=== PATIENT | female | born 1960 | race Caucasian/White ===

== ENCOUNTER → 2022-02-14 16:11 | Outpatient (CLI) | payer OTHER, SELFPAY ==
--- NOTE | ~2022-02-14 | XR_ITS ---
XR chest 2V DATE: 02/14/2022 16:34 INDICATION: Cough TECHNIQUE: 2 views COMPARISON: March 31, 2014 2 view chest FINDINGS: Normal heart size. No hilar or mediastinal enlargement. No pulmonary infiltrate or consolid ation, pleural effusion or pulmonary vascular congestion or pneumothorax. IMPRESSION: No active cardiopulmonary disease Reviewed, dictated and finalized at location [facility]
== END ==
PROVIDERS: PCP Internal Medicine; Visit Provider Internal Medicine
DX: R05.9 Cough, unspecified (principal)
CPT/HCPCS: 71046

== ENCOUNTER 2022-12-13 05:16 | Day surgery (SDC) | payer OTHER, SELFPAY ==
[2022-12-02 14:04] VITALS: BMI 27.6
--- NOTE | 2022-12-12 13:31 | WPDANESEPPF ---
Anes - Initial Pre Proc Eval Procedure: Operation Date: 12/13/22 08:00 Proposed Procedures p Screening Colonoscopy - Jay Arango MD Date/Time: 12/12/22 13:31 Surgeon: Jay Arango MD Pre Op Diagnosis: neoplasm screening Patient Data Age: 62 Gender: F Height: 1.68 m Weight: 77.5 kg Allergies Allergy/AdvReac Type Severity Reaction Status Date / Time No Known Allergies Allergy Mild Verified 12/13/22 06:49 Home Medications Medication Instructions Recorded Confirmed Type cholecalciferol (vitamin D3) 50 2,500 mcg PO DAILY 12/02/22 12/02/22 History mcg (2,000 unit) tablet (Vitamin D3) cyanocobalamin (vitamin B-12) 1,000 mcg PO DAILY 12/02/22 12/02/22 History 1,000 mcg tablet (Vitamin B-12) valacyclovir 500 mg tablet 500 mg PO DAILY PRN fever blister 12/02/22 12/02/22 History (Valtrex) Patient hx anesthesia problems: none Family hx anesthesia problems: none Results Review: All pre-operative results and documents have been reviewed as part of the pre-operative evaluation. [facility] Past Medical History Medical History (Updated 12/12/22 @ 13:31 by Vahe Sanchez DO) Asthma Social History Social History Smoking status: Former smoker Alcohol intake: current Drinks per week: 2 Substance use: never Substance use type: does not use Living arrangements: with family Spiritual care concerns: No Anes - Eval Final PreProcedure Day of Procedure 12/12/22 13:31 Patient weight: overweight Heart: regular rate and rhythm Lungs: clear to auscultation Airway: Mallampati scale class II Neurological: alert and oriented Last oral intake: >/= 8 hours ASA classification: II Emergent: no Anesthetic plan: proceed Anesthesia type and monitoring: general GIVS and standard monitoring Results Review: All pre-operative results and documents have been reviewed as part of the pre-operative evaluation. Informed Consent: The patient's anesthetic plan and its attendant risks and benefits were discussed with the patient/family/POA. Questions were solicited and answers provided to the satisfaction of the patient/family/POA.
[2022-12-13 06:50] VITALS: BP 104/74; PULSE 71; RESP 20; TEMP 36.1; O2SAT 99
[2022-12-13] MEDS: LACTATED RINGERS 1,000 ML 150 ML IV CONT (07:03)
--- NOTE | 2022-12-13 07:55 | P.HP_ITS ---
History of Present Illness History of Present Illness Consent: Risks, benefits, and alternatives have been discussed and questions answered. Patient agrees to proceed with procedure. Chief complaint: neoplasm screening Narrative: Love Mcdowell is a 62 year old female Presents for screening colonoscopy. Patient's current weight appetite and bowel movements are normal. Patient denies abdominal pain. She has had no bleeding. Family history noncontributory . Previous colonoscopy 2012 was unremarkable. Review of Systems Review of Systems: Review of systems noncontributory. [facility] Past Medical History Medical History (Updated 12/13/22 @ 07:56 by Jay Arango MD) Asthma Social History Social History Smoking status: Former smoker Alcohol intake: current Drinks per week: 2 Substance use: never Substance use type: does not use Living arrangements: with family Spiritual care concerns: No Meds Home Medications and Allergies Home Medications Medication Instructions Recorded Confirmed Type cholecalciferol (vitamin D3) 50 2,500 mcg PO DAILY 12/02/22 12/02/22 History mcg (2,000 unit) tablet (Vitamin D3) cyanocobalamin (vitamin B-12) 1,000 mcg PO DAILY 12/02/22 12/02/22 History 1,000 mcg tablet (Vitamin B-12) valacyclovir 500 mg tablet 500 mg PO DAILY PRN fever blister 12/02/22 12/02/22 History (Valtrex) Allergies Allergy/AdvReac Type Severity Reaction Status Date / Time No Known Allergies Allergy Mild Verified 12/13/22 06:49 Vital Signs Vital Signs - 24 hr 12/13/22 06:50 Temperature 97 F L Pulse Rate 71 Respiratory Rate 20 Blood Pressure 104/74 Pulse Oximetry 99 Oxygen Delivery Room Air Exam Narrative: Physical exam reveals patient to be alert. Vital signs stable. HEENT exam is unremarkable. Patient is anicteric. Lungs are clear to auscultation and percussion. Heart is without murmur or extra sounds. Abdomen bowel sounds are present soft nontender with no organomegaly. Digital external rectal exam normal. Assessment and Plan Assessment and plan (1) Encounter for screening colonoscopy: Code(s): Z12.11 - Encounter for screening for malignant neoplasm of colon Status: Acute Assessment and Plan: Patient presents for screening colonoscopy. She appears to be at average risk for colon polyps. Further recommendations will be given after endoscopy.
[2022-12-13 08:21] VITALS: BP 114/71; PULSE 77; RESP 19; O2SAT 98
[2022-12-13 08:31] VITALS: BP 110/69; PULSE 75; RESP 22; O2SAT 100
[2022-12-13 08:41] VITALS: BP 121/86; PULSE 62; RESP 17; O2SAT 100
== END 2022-12-13 08:50 | disposition home or self-care (01) ==
PROVIDERS: PCP Internal Medicine; Visit Provider Internal Medicine Gastroenterology
PROC: 0DJD8ZZ Inspection of Lower Intestinal Tract, Via Natural or Artificial Opening Endoscopic (ICD-10-PCS; CPT 45378; principal; 2022-12-13 08:00)
DX: Z12.11 Encounter for screening for malignant neoplasm of colon (principal); K64.8 Other hemorrhoids; Z87.891 Personal history of nicotine dependence
CPT/HCPCS: 45378; J2704; J7120